=== PATIENT | female | born 1965 | race Caucasian/White ===

== ENCOUNTER 2019-03-22 05:56 | Emergency (ER) | payer MEDICAID ==
[~2019-03-22] VITALS: Ht 162.6 cm; Wt 100.0 kg
[2019-03-22] MEDS ORDERED: ACETAMINOPHEN 325MG TABLET PO ONE (07:00)
[2019-03-22] MEDS ORDERED: FLUORESCEIN SODIUM 1MG/STRIP LEFTEYE ONE (07:00)
[2019-03-22 09:08] VITALS: BP 147/78
== END 2019-03-22 09:10 | disposition home or self-care (01) ==
LOC: ER 05:56
DX: S00.33XA Contusion of nose, initial encounter (principal); I10 Essential (primary) hypertension; F20.9 Schizophrenia, unspecified; Y08.89XA Assault by other specified means, initial encounter; Y93.89 Activity, other specified; Y92.89 Other specified places as the place of occurrence of the external cause; Y99.8 Other external cause status
CPT/HCPCS: 70160; 99283